=== PATIENT | female | born 1970 | race Caucasian/White ===

== ENCOUNTER 2016-10-24 08:48 | Emergency (ER) | payer MEDICAID ==
[2016-10-24 08:57] VITALS: BP 118/79; PULSE 79; RESP 18; TEMP 98.2; O2SAT 97
--- NOTE | 2016-10-24 09:18 | C.PDOC ---
History Of Present Illness 46 y/o female presents to the ED with complains of chronic back pain since 2016. Pt has had prior evaluation with MRI at outside hospital. Pain is worse the last 3 days. Pt has been taking 1 tablet Aleve 2x daily. Denies weakness, numbness, incontinence or any other complaints. Time Seen by Provider: 10/24/16 09:07 Chief Complaint (Nursing): Back Pain History Per: Patient History/Exam Limitations: no limitations Onset/Duration Of Symptoms: Days Current Symptoms Are (Timing): Worse Quality Of Discomfort: "Pain" Severity: Moderate Previous Symptoms: Back Pain, Chronic Pain Associated Symptoms: None Recent travel outside of the [place]: No Past Medical History Reviewed: Historical Data, Nursing Documentation, Vital Signs Vital Signs: Last Vital Signs Temp 98.2 F 10/24/16 08:56 Pulse 79 10/24/16 08:56 Resp 18 10/24/16 08:56 BP 118/79 10/24/16 08:56 Pulse Ox 97 10/24/16 09:18 - Medical History PMH: Gastritis Family History: States: Unknown Family Hx - Social History Hx Tobacco Use: No Hx Alcohol Use: No Hx Substance Use: No - Immunization History Hx Tetanus Toxoid Vaccination: No Hx Influenza Vaccination: No Hx Pneumococcal Vaccination: No Review Of Systems Except As Marked, All Systems Reviewed And Found Negative. Genitourinary: Negative for: Incontinence Musculoskeletal: Positive for: Back Pain Neurological: Negative for: Weakness, Numbness Physical Exam - Physical Exam Appears: Non-toxic, No Acute Distress Skin: Warm, Dry, No Rash Head: Atraumatic, Normacephalic Neck: Normal, Normal ROM, Supple Chest: Symmetrical Cardiovascular: Rhythm Regular, No Murmur Respiratory: Normal Breath Sounds, No Rales, No Rhonchi, No Wheezing Back: Normal Inspection, No Vertebral Tenderness, No Paraspinal Tenderness Extremity: Bilateral: Atraumatic Neurological/Psych: Oriented x3, Normal Speech, Normal Motor, Normal Sensation ED Course And Treatment O2 Sat by Pulse Oximetry: 97 (room air) Pulse Ox Interpretation: Normal Progress Note: ice packs, motrin Medical Decision Making Medical Decision Making: LS spine plain films 06/20/15 wnl pt could benefit from LS MRI no acute injuries, may f/u with PMD for MRI referral. Disposition Doctor Will See Patient In The: Office Counseled Patient/Family Regarding: Studies Performed, Diagnosis - Disposition Referrals: Jose Haynes Jr., MD [Non-Staff] - Disposition: HOME/ ROUTINE Disposition Time: 09:18 Condition: GOOD Additional Instructions: sigue ibuprofeno 600 mg cada 6 horas Pepcid 20 mg en la noche para prevenir irritacion' del estomago [place] de h[place] 1/2 hora por hora, nada caliente. Pide que Dr. Haynes te madhavi hacer MRI del [place] lumbar/Sacral Instructions: Chronic Back Pain (ED) Print Language: ESTONIAN - Clinical Impression Clinical Impression: Low back pain - Scribe Statement The provider has reviewed the documentation as recorded by the Scribsaadia Granados Provider Attestation: All medical record entries made by the Scribe were at my direction and personally dictated by me. I have reviewed the chart and agree that the record accurately reflects my personal performance of the history, physical exam, medical decision making, and the department course for this patient. I have also personally directed, reviewed, and agree with the discharge instructions and disposition.
== END 2016-10-24 09:23 | disposition home or self-care (01) ==
LOC: C.ER 08:48
DX: M54.5 Low back pain (principal)

== ENCOUNTER 2017-10-24 17:11 | Emergency (ER) | payer MEDICAID ==
[2017-10-24 17:28] VITALS: BP 109/74; PULSE 77; RESP 18; TEMP 98.9; O2SAT 99
--- NOTE | 2017-10-24 17:57 | C.PDOC ---
History Of Present Illness 47 yo female w/PMhx of chronic lower back pain com ein for re-evaluation of Right>Left sided lower back pain exacerbation for past 3-4 days. Pt reports, pain is localized over lower back, worse with movement. Admits, similar sx in past, c/w exacerbation of chr. lower back pain. Otherwise, pt denies known recent trauma or injury, fever, chills, abd. pain, N/V, UTI sx, saddle anesthesia, incontinence, denies weakness, sensory or vascular deficits to B?L LEs. Ambulate to Ed for evaluation, not in any apparent distress. Time Seen by Provider: 10/24/17 17:16 Chief Complaint (Nursing): Back Pain History Per: Patient Onset/Duration Of Symptoms: Gradual Past Medical History Reviewed: Historical Data, Nursing Documentation, Vital Signs Vital Signs: Last Vital Signs Temp 98.9 F 10/24/17 17:25 Pulse 77 10/24/17 17:25 Resp 18 10/24/17 17:25 BP 109/74 10/24/17 17:25 Pulse Ox 99 10/24/17 18:01 - Medical History PMH: Back Problems, Gastritis Family History: States: Unknown Family Hx - Social History Hx Tobacco Use: No Hx Alcohol Use: No Hx Substance Use: No - Immunization History Hx Tetanus Toxoid Vaccination: No Hx Influenza Vaccination: No Hx Pneumococcal Vaccination: No Review Of Systems Except As Marked, All Systems Reviewed And Found Negative. Constitutional: Negative for: Fever, Chills ENT: Negative for: Throat Pain Cardiovascular: Negative for: Chest Pain Respiratory: Negative for: Cough, Shortness of Breath Gastrointestinal: Negative for: Nausea, Vomiting, Abdominal Pain, Diarrhea Genitourinary: Negative for: Dysuria, Frequency, Incontinence Musculoskeletal: Positive for: Back Pain. Negative for: Neck Pain Skin: Negative for: Rash Neurological: Negative for: Weakness, Numbness Physical Exam - Physical Exam Appears: Well, Non-toxic, No Acute Distress Skin: Normal Color, Warm, Dry, No Rash Head: Normacephalic Eye(s): bilateral: PERRL Ear(s): Bilateral: Normal Nose: No Flaring Throat: No Erythema, No Exudate Neck: Trachea Midline, No Midline Cervical Tenderness, No Paracervical Tenderness, No Step Off Deformity, Supple Cardiovascular: Rhythm Regular, No Murmur Respiratory: No Decreased Breath Sounds, No Accessory Muscle Use, No Stridor, No Wheezing Gastrointestinal/Abdominal: Soft, No Tenderness, No Distention, No Guarding Back: No CVA Tenderness, No Vertebral Tenderness, Paraspinal Tenderness ( diffuse R>L lumbar with mod paraspinal muscle spasm.) Extremity: Normal ROM, No Tenderness, No Pedal Edema, No Deformity, No Swelling Neurological/Psych: Oriented x3, Normal Speech, Normal Motor, Normal Sensation, Normal Reflexes ED Course And Treatment O2 Sat by Pulse Oximetry: 99 Pulse Ox Interpretation: Normal Progress Note: On re-evaluation, pt is afebrile, hemodynamicaly stable. Non- toxic. Ambulatory in ED with stable gait. ENT: no acute findings. Uvula midline , no edema. Neck: Supple, (-) JVD. Lungs: CTA B/L, BS equal B/L. Abd: benign , (-) guarding, (-) rebound. back: (-) CVA tenderness. Neurologicaly intact. UA results review and appears normal. Pt has clinical findings c/w exacerbation of chronic lower back, lumbar radiculopathy. Pt advised. ref. to f/u with PMD in 2-3 days for re-evaluation. return to ED if any worsening or new changes. Disposition Counseled Patient/Family Regarding: Studies Performed, Diagnosis, Need For Followup, Rx Given - Disposition Referrals: [facility] [Outside] Disposition: HOME/ ROUTINE Disposition Time: 17:58 Condition: STABLE Additional Instructions: Light duty to lower back, avoid bending, heavy lifting, any physical activitty for 1 week take medication as prescribed Follow up with PMD in 2-3 days for re-evaluation. return to ED if any worsening or new changes. Prescriptions: Gabapentin [Neurontin] 300 mg PO HS #10 cap Ibuprofen [Motrin Tab] 600 mg PO BID #14 tab Methocarbamol [Robaxin] 500 mg PO TID #14 tab Instructions: Radiculopathy, Low Back Pain (DC) Forms: [employer] (Syriac) Print Language: EQUATORIAL GUINEAN - Clinical Impression Clinical Impression: Low back pain, Lumbar radiculopathy
[2017-10-24 17:59] LABS: HCG,QUALITATIVE URINE NEGATIVE (NEGATIVE)
[2017-10-24 18:00] LABS: SQUAMOUS EPITHIAL 4 /hpf (0-5); URINE BILIRUBIN NEGATIVE (NEGATIVE); URINE CLARITY Hazy (Clear); URINE COLOR Yellow (YELLOW); URINE GLUCOSE (UA) NORMAL (Normal); URINE LEUKOCYTE ESTERASE NEG Leu/uL (Negative); URINE PROTEIN NEGATIVE (NEGATIVE); URINE UROBILINOGEN NORMAL mg/dL (0.2-1.0)
[2017-10-24 18:03] LABS: URINE BLOOD 1+ (NEGATIVE)
== END 2017-10-24 18:34 | disposition home or self-care (01) ==
LOC: C.ER 17:11
DX: M54.16 Radiculopathy, lumbar region (principal); M54.5 Low back pain
CPT/HCPCS: 81001; 84703; 96372; 99283; J1885

== ENCOUNTER 2017-10-26 16:16 | Emergency (ER) | payer MEDICAID ==
[2017-10-26 16:24] VITALS: BMI 25.8
[2017-10-26 16:29] VITALS: O2SAT 100
[2017-10-26] MEDS ORDERED: Lidocaine 5% Patch TD STA (16:38)
[2017-10-26] MEDS ORDERED: Oxycodone/Acetaminophen 5/325 mg Tab PO STA (16:39)
[2017-10-26] MEDS ORDERED: Lidocaine 5% Patch TD ONE (16:59)
[2017-10-26] MEDS ORDERED: Oxycodone/Acetaminophen 5/325 mg Tab ONE (16:59)
--- NOTE | 2017-10-26 17:00 | C.PDOC ---
History Of Present Illness 47 year old female presents to the ED complaining of lower back pain radiating down her right leg for a week. She was seen in the ER and was prescribed motrin and muscle relaxers but reports no relief. Patient denies any fever, incontinence, weakness, numbness, trauma, or injuries. Time Seen by Provider: 10/26/17 16:31 Chief Complaint (Nursing): Back Pain History Per: Patient History/Exam Limitations: no limitations Onset/Duration Of Symptoms: Days Current Symptoms Are (Timing): Still Present Past Medical History Reviewed: Historical Data, Nursing Documentation, Vital Signs Vital Signs: Last Vital Signs Temp 98.1 F 10/26/17 17:38 Pulse 68 10/26/17 17:38 Resp 18 10/26/17 17:38 BP 118/62 10/26/17 17:38 Pulse Ox 100 10/26/17 17:38 - Medical History PMH: Back Problems, Gastritis Other Surgeries: Hx of surgeries Family History: States: No Known Family Hx - Social History Hx Tobacco Use: No Hx Alcohol Use: Yes Hx Substance Use: No - Immunization History Hx Tetanus Toxoid Vaccination: No Hx Influenza Vaccination: No Hx Pneumococcal Vaccination: No Review Of Systems Constitutional: Negative for: Fever Cardiovascular: Negative for: Chest Pain, Palpitations Respiratory: Negative for: Cough, Shortness of Breath Gastrointestinal: Negative for: Abdominal Pain, Constipation Genitourinary: Negative for: Dysuria, Frequency, Incontinence Musculoskeletal: Positive for: Back Pain, Leg Pain Neurological: Negative for: Weakness, Numbness Physical Exam - Physical Exam Appears: Non-toxic Skin: Normal Color, Warm Head: Atraumatic, Normacephalic Eye(s): bilateral: Normal Inspection Oral Mucosa: Moist Neck: Supple Cardiovascular: Rhythm Regular Respiratory: Normal Breath Sounds, No Rales, No Rhonchi Gastrointestinal/Abdominal: No Distention Back: Normal Inspection, No Vertebral Tenderness, Paraspinal Tenderness Extremity: Normal ROM, No Tenderness, No Deformity, No Swelling Neurological/Psych: Oriented x3 Gait: Steady ED Course And Treatment O2 Sat by Pulse Oximetry: 100 (RA) Medical Decision Making Medical Decision Making: Impression: Back pain radiating down to right leg Prior records reviewed patient was seen twice in ED and had xrays with no acute findings Orders: Toradol 30mg IM Lidocaine Percocet 1 tab PO On reassessment, patient is resting comfortably, and is in no acute distress. she has no fever, bony tenderness and ambulating well. Patient was instructed to follow up with physician/clinic in 1-2 days for further evaluation. Disposition Counseled Patient/Family Regarding: Diagnosis, Need For Followup - Disposition Referrals: Josue Bryan MD [Staff Provider] - Cheikh Cervantes MD [Staff Provider] - Disposition: HOME/ ROUTINE Disposition Time: 17:25 Condition: STABLE Additional Instructions: Please follow up with your doctor and pain management for further evaluation Continue taking pain medications prescribed to you Instructions: Low Back Pain (DC) Forms: [employer] (Bermudian) Print Language: ZAMBIAN - POA Present On Arrival: None - Clinical Impression Clinical Impression: Low back pain, Lumbar radiculopathy - PA / [employer] / Resident Statement MD/DO has reviewed & agrees with the documentation as recorded. - Scribe Statement The provider has reviewed the documentation as recorded by the Scribe Lilly Tadeo All medical record entries made by the Scribe were at my direction and personally dictated by me. I have reviewed the chart and agree that the record accurately reflects my personal performance of the history, physical exam, medical decision making, and the department course for this patient. I have also personally directed, reviewed, and agree with the discharge instructions and disposition.
[2017-10-26 17:43] VITALS: BP 118/62; PULSE 68; RESP 18; TEMP 98.1
== END 2017-10-26 17:42 | disposition home or self-care (01) ==
LOC: C.ER 16:16
DX: M54.16 Radiculopathy, lumbar region (principal); M54.5 Low back pain
CPT/HCPCS: 96372; 99284; J1885